=== PATIENT | male | born 1950 | race Caucasian/White ===

== ENCOUNTER 2016-11-25 17:19 | Emergency (ER) | payer MEDICARE, OTHER ==
[~2016-11-25] VITALS: Ht 170.2 cm; Wt 87.0 kg
[~2016-11-25 17:19] MED LIST: ATOR20TA86 PO; BENZ0.5T6 PO; BETH25 PO; DIVA500T35 PO; DONE10TA PO; DSS100 PO; LISI-661 PO; QUET100T PO; TAMS0.4C32 PO
[2016-11-25 18:45] LABS: BASOPHILS % (AUTO) 0.3 % (0.0-2.0); EOSINOPHILS % (AUTO) 0.6 % (1.0-6.0); HEMATOCRIT 37.8 % (41-53); HEMOGLOBIN 12.5 g/dL (13.5-17.5); LYMPHOCYTES % (AUTO) 12.8 % (22.0-44.0); MEAN CORPUSCULAR HEMOGLOBIN 30.9 pg (26.0-34.0); MEAN CORPUSCULAR VOLUME 94 fL (80-100); MONOCYTES # (AUTO) 0.7 K/uL (0.1-1.0); MONOCYTES % (AUTO) 8.7 % (2.0-9.0); NEUTROPHILS % (AUTO) 77.6 % (40.0-70.0); PLATELET COUNT (AUTO) 207 K/uL (150-450); RED BLOOD CELL COUNT(AUTO) 4.04 MIL/uL (4.50-5.90); RED CELL DISTRIBUTION WIDTH 14.5 % (11.5-14.5); WHITE BLOOD COUNT (AUTO) 7.7 K/uL (4.5-11.0)
[2016-11-25 19:01] LABS: ANION GAP 8 mmol/L (8-16); CALCIUM, TOTAL 8.6 mg/dL (8.8-10.5); CARBON DIOXIDE 28 mmol/L (22-29); CHLORIDE 90 mmol/L (98-107); CREATININE 2.13 mg/dL (0.60-1.30); GLOMERULAR FILTR. RATE CALC 31 mL/min (>60); POTASSIUM 3.7 mmol/L (3.5-5.1); SODIUM SERUM 126 mmol/L (136-145); UREA NITROGEN, BLOOD 29 mg/dL (7-18)
[2016-11-25 19:06] LABS: ALANINE AMINOTRANSFERASE 14 U/L (12-78); ALBUMIN 3.5 g/dL (3.4-5.0); ASPARTATE AMINOTRANSFERASE 25 U/L (15-37); BILIRUBIN,TOTAL 0.4 mg/dL (0.1-1.0); TOTAL PROTEIN, SERUM 6.5 g/dL (6.4-8.2)
[2016-11-25] MEDS ORDERED: SODIUM CHLORIDE 0.9% 1,000 ML IV ONE (20:45)
[2016-11-25 21:41] VITALS: BP 110/65
== END 2016-11-25 22:03 | disposition home or self-care (01) ==
LOC: EMS 17:25
DX: F20.9 Schizophrenia, unspecified (principal); I10 Essential (primary) hypertension
CPT/HCPCS: 36415; 80053; 80307; 85025; 96360; 99285; G0480; J7030

== ENCOUNTER 2018-11-11 15:55 | Emergency (ER) | payer MEDICARE, OTHER ==
[~2018-11-11] VITALS: Ht 167.6 cm; Wt 76.0 kg
[~2018-11-11 15:55] MED LIST changes: +ACYC200C PO; -ATOR20TA86 PO; +BACL10TA PO; -BENZ0.5T6 PO; -BETH25 PO; +CEPH500 PO; +CIPR-278 PO; +DIVA-78 PO; -DIVA500T35 PO; -DONE10TA PO; -DSS100 PO; -LISI-661 PO; +PANT40TA25 PO; -QUET100T PO; -TAMS0.4C32 PO
[2018-11-11] MEDS ORDERED: BETH25 PO (16:34)
[2018-11-11] MEDS ORDERED: MEMA5 PO (16:34)
[2018-11-11] MEDS ORDERED: TAMS0.4C32 PO (16:34)
[2018-11-11] MEDS ORDERED: LISI-661 PO (16:34)
[2018-11-11] MEDS ORDERED: TEMA15CA PO (16:34)
[2018-11-11] MEDS ORDERED: AMAN100C12 PO (16:34)
[2018-11-11] MEDS ORDERED: RISP.5 PO (16:34)
[2018-11-11] MEDS ORDERED: DIVA500T52 PO (16:34)
[2018-11-11] MEDS ORDERED: DIVA250T4 PO (16:34)
[2018-11-11] MEDS ORDERED: PANT40TA25 PO (16:34)
[2018-11-11] MEDS ORDERED: DSS100 PO (16:34)
[2018-11-11] MEDS ORDERED: DONE10TA8 PO (16:34)
[2018-11-11] MEDS ORDERED: TRAZ-219 PO (16:34)
[2018-11-11] MEDS ORDERED: RISP1 PO (16:34)
[2018-11-11 16:57] LABS: BASOPHILS % (AUTO) 0.4 % (0.0-2.0); EOSINOPHILS % (AUTO) 1.5 % (1.0-6.0); HEMATOCRIT 37.2 % (41-53); HEMOGLOBIN 12.5 g/dL (13.5-17.5); LYMPHOCYTES # (AUTO) 1.1 K/uL (1.0-4.8); LYMPHOCYTES % (AUTO) 21.3 % (22.0-44.0); MEAN CORPUSCULAR HEMOGLOBIN 30.1 pg (26.0-34.0); MEAN CORPUSCULAR HGB CONC 33.6 G/dL (31.0-37.0); MEAN CORPUSCULAR VOLUME 90 fL (80-100); MONOCYTES # (AUTO) 0.6 K/uL (0.1-1.0); MONOCYTES % (AUTO) 11.1 % (2.0-9.0); NEUTROPHILS # (AUTO) 3.4 K/uL (1.8-7.7); NEUTROPHILS % (AUTO) 65.7 % (40.0-70.0); PLATELET COUNT (AUTO) 139 K/uL (150-450); RED BLOOD CELL COUNT(AUTO) 4.15 MIL/uL (4.50-5.90); RED CELL DISTRIBUTION WIDTH 14.6 % (11.5-14.5)
[2018-11-11 17:46] LABS: ALANINE AMINOTRANSFERASE 18 U/L (12-78); ALBUMIN 3.2 g/dL (3.4-5.0); ALKALINE PHOSPHATASE 83 U/L (46-116); ANION GAP 7 mmol/L (8-16); ASPARTATE AMINOTRANSFERASE 18 U/L (15-37); BILIRUBIN,TOTAL 0.2 mg/dL (0.1-1.0); CALCIUM, TOTAL 8.7 mg/dL (8.8-10.5); CARBON DIOXIDE 28 mmol/L (22-29); CHLORIDE 96 mmol/L (98-107); GLOMERULAR FILTR. RATE CALC 28 mL/min (>60); GLUCOSE,RANDOM 98 mg/dL (70-110); POTASSIUM 5.1 mmol/L (3.5-5.1); SODIUM SERUM 131 mmol/L (136-145); TOTAL PROTEIN, SERUM 6.2 g/dL (6.4-8.2); UREA NITROGEN, BLOOD 39 mg/dL (7-18); VALPROIC ACID 53 mcg/mL (50-100)
[2018-11-11 20:20] LABS: APPEARANCE,URINE CLEAR (CLEAR); BILIRUBIN,URINE NEGATIVE (NEGATIVE); GLUCOSE, URINE (UA) NEGATIVE (NEGATIVE); KETONES,URINE NEGATIVE (NEGATIVE); LEUKOCYTE ESTERASE ,URINE NEGATIVE (NEGATIVE); NITRATE,URINE NEGATIVE (NEGATIVE); OCCULT BLOOD,URINE NEGATIVE (NEGATIVE); PH,URINE 6.5 (5.0-8.0); PROTEIN,URINE NEGATIVE (NEGATIVE); UROBILINOGEN,URINE 0.2 mg/dL (<=1.0)
[2018-11-11 20:26] LABS: AMPHET/METH SCREEN,URINE NEGATIVE (NEGATIVE); BARBITURATE SCREEN, URINE NEGATIVE (NEGATIVE); BENZODIAZEPINES SCREEN,URINE NEGATIVE (NEGATIVE); CANNABINOID SCREEN,URINE NEGATIVE (NEGATIVE); COCAINE SCREEN,URINE NEGATIVE (NEGATIVE); METHADONE SCREEN, URINE NEGATIVE (NEGATIVE); OPIATE SCREEN,URINE NEGATIVE (NEGATIVE)
[2018-11-11 20:30] LABS: PHENCYCLIDINE SCREEN,URINE NEGATIVE (NEGATIVE)
[2018-11-11 21:09] LABS: BACTERIA,URINE None Seen /HPF (None Seen); RBC,URINE None Seen /HPF (0-2); WBC,URINE None Seen /HPF (0-5)
[2018-11-11 21:10] LABS: SQUAMOUS EPITHELIAL CELL,UR None Seen /LPF (None Seen)
[2018-11-11 21:29] VITALS: BP 132/80
== END 2018-11-11 21:30 | disposition home or self-care (01) ==
LOC: EMS 15:56
DX: G40.909 Epilepsy, unspecified, not intractable, without status epilepticus (principal); M79.631 Pain in right forearm; F31.9 Bipolar disorder, unspecified; I10 Essential (primary) hypertension; F20.9 Schizophrenia, unspecified; Z79.899 Other long term (current) drug therapy
CPT/HCPCS: 36415; 80053; 80164; 80307; 81001; 85025; 99291; G0480

== ENCOUNTER 2018-11-14 11:26 | Emergency (ER) | payer MEDICARE, OTHER ==
[~2018-11-14] VITALS: Ht 171.4 cm; Wt 68.1 kg
[~2018-11-14 11:26] MED LIST changes: -ACYC200C PO; +AMAN100C12 PO; -BACL10TA PO; +BETH25 PO; -CEPH500 PO; -CIPR-278 PO; -DIVA-78 PO; +DIVA250T4 PO; +DIVA500T52 PO; +DONE10TA8 PO; +DSS100 PO; +LISI-661 PO; +MEMA5 PO; +RISP.5 PO; +RISP1 PO; +TAMS0.4C32 PO; +TEMA15CA PO; +TRAZ-219 PO
[2018-11-14] MEDS ORDERED: DIVA-78 PO (12:07)
[2018-11-14] MEDS ORDERED: VALPROATE SODIUM 500 MG in DEXTROSE 5%-WATER 50 ML IV ONE (12:15)
[2018-11-14 15:49] LABS: BASOPHILS % (AUTO) 0.5 % (0.0-2.0); EOSINOPHILS % (AUTO) 0.7 % (1.0-6.0); HEMATOCRIT 36.5 % (41-53); HEMOGLOBIN 12.4 g/dL (13.5-17.5); LYMPHOCYTES # (AUTO) 1.2 K/uL (1.0-4.8); LYMPHOCYTES % (AUTO) 22.2 % (22.0-44.0); MEAN CORPUSCULAR HEMOGLOBIN 30.1 pg (26.0-34.0); MEAN CORPUSCULAR HGB CONC 34.1 G/dL (31.0-37.0); MEAN CORPUSCULAR VOLUME 88 fL (80-100); MONOCYTES # (AUTO) 0.5 K/uL (0.1-1.0); MONOCYTES % (AUTO) 9.9 % (2.0-9.0); NEUTROPHILS # (AUTO) 3.6 K/uL (1.8-7.7); NEUTROPHILS % (AUTO) 66.7 % (40.0-70.0); PLATELET COUNT (AUTO) 138 K/uL (150-450); RED BLOOD CELL COUNT(AUTO) 4.14 MIL/uL (4.50-5.90); RED CELL DISTRIBUTION WIDTH 14.8 % (11.5-14.5)
[2018-11-14 16:03] LABS: ALANINE AMINOTRANSFERASE 20 U/L (12-78); ALBUMIN 3.1 g/dL (3.4-5.0); ALKALINE PHOSPHATASE 86 U/L (46-116); ANION GAP 4 mmol/L (8-16); ASPARTATE AMINOTRANSFERASE 17 U/L (15-37); BILIRUBIN,TOTAL 0.4 mg/dL (0.1-1.0); CALCIUM, TOTAL 8.7 mg/dL (8.8-10.5); CARBON DIOXIDE 27 mmol/L (22-29); CHLORIDE 94 mmol/L (98-107); CREATININE 2.52 mg/dL (0.60-1.30); GLOMERULAR FILTR. RATE CALC 25 mL/min (>60); GLUCOSE,RANDOM 92 mg/dL (70-110); POTASSIUM 4.3 mmol/L (3.5-5.1); SODIUM SERUM 125 mmol/L (136-145); UREA NITROGEN, BLOOD 33 mg/dL (7-18); VALPROIC ACID 88 mcg/mL (50-100)
[2018-11-14 16:12] LABS: AMPHET/METH SCREEN,URINE NEGATIVE (NEGATIVE); BARBITURATE SCREEN, URINE NEGATIVE (NEGATIVE); BENZODIAZEPINES SCREEN,URINE NEGATIVE (NEGATIVE); CANNABINOID SCREEN,URINE NEGATIVE (NEGATIVE); COCAINE SCREEN,URINE NEGATIVE (NEGATIVE); METHADONE SCREEN, URINE NEGATIVE (NEGATIVE); OPIATE SCREEN,URINE NEGATIVE (NEGATIVE); PHENCYCLIDINE SCREEN,URINE NEGATIVE (NEGATIVE)
[2018-11-14 19:36] VITALS: BP 122/78
== END 2018-11-14 20:20 | disposition home or self-care (01) ==
LOC: EMS 11:27
DX: G40.909 Epilepsy, unspecified, not intractable, without status epilepticus (principal); I10 Essential (primary) hypertension; F20.9 Schizophrenia, unspecified; F31.9 Bipolar disorder, unspecified; Z79.899 Other long term (current) drug therapy
CPT/HCPCS: 36415; 70450; 80053; 80164; 80307; 85025; 96365; 99284; G0480; J3490; J7060

== ENCOUNTER 2019-05-06 15:28 | Inpatient (IN) | payer MEDICARE, OTHER ==
[~2019-05-06] VITALS: Ht 177.8 cm; Wt 81.6 kg
[~2019-05-06 15:28] MED LIST changes: +AMAN-6 PO; -AMAN100C12 PO; +DIVA-78 PO; -DIVA250T4 PO; -TRAZ-219 PO; +TRAZ-252 PO
[2019-05-06] MEDS ORDERED: SODIUM CHLORIDE 0.9% 1,000 ML IV ONE ×3 (15:52→20:45)
[2019-05-06] MEDS ORDERED: ATOR10TA84 PO (15:53)
[2019-05-06] MEDS ORDERED: ACETAMINOPHEN 500 MG TABLET PO ONE (16:00)
[2019-05-06 16:24] LABS: BASOPHILS % (AUTO) 0.2 % (0.0-2.0); EOSINOPHILS % (AUTO) 0.3 % (1.0-6.0); HEMOGLOBIN 11.5 g/dL (13.5-17.5); LYMPHOCYTES # (AUTO) 0.5 K/uL (1.0-4.8); LYMPHOCYTES % (AUTO) 3.4 % (22.0-44.0); MEAN CORPUSCULAR HEMOGLOBIN 30.5 pg (26.0-34.0); MEAN CORPUSCULAR HGB CONC 32.9 G/dL (31.0-37.0); MEAN CORPUSCULAR VOLUME 93 fL (80-100); MONOCYTES # (AUTO) 0.9 K/uL (0.1-1.0); MONOCYTES % (AUTO) 6.4 % (2.0-9.0); NEUTROPHILS # (AUTO) 12.3 K/uL (1.8-7.7); PLATELET COUNT (AUTO) 162 K/uL (150-450); RED BLOOD CELL COUNT(AUTO) 3.77 MIL/uL (4.50-5.90); RED CELL DISTRIBUTION WIDTH 14.4 % (11.5-14.5)
[2019-05-06 16:25] LABS: NEUTROPHILS % (AUTO) 89.7 % (40.0-70.0)
[2019-05-06 16:34] LABS: CALCIUM, TOTAL 8.6 mg/dL (8.8-10.5); CREATININE 3.19 mg/dL (0.60-1.30); POTASSIUM 4.4 mmol/L (3.5-5.1)
[2019-05-06 16:38] LABS: PROTHROMBIN TIME 10.9 SEC (9.4-11.6)
[2019-05-06 16:49] LABS: LACTIC ACID 1.1 mmol/L (0.4-2.0)
[2019-05-06 17:00] LABS: ALBUMIN 2.6 g/dL (3.4-5.0); BILIRUBIN,TOTAL 0.7 mg/dL (0.1-1.0); TOTAL PROTEIN, SERUM 6.9 g/dL (6.4-8.2)
[2019-05-06 17:41] LABS: INFLUENZA TYPE A NEGATIVE FOR TYPE A (NEGATIVE); INFLUENZA TYPE B NEGATIVE FOR TYPE B (NEGATIVE)
[2019-05-06] MEDS ORDERED: CefTRIAXone 1 GM/DEXTROSE 50 ML IV SCH (18:00)
[2019-05-06 18:05] LABS: APPEARANCE,URINE TURBID (CLEAR); BILIRUBIN,URINE NEGATIVE (NEGATIVE); GLUCOSE, URINE (UA) NEGATIVE (NEGATIVE); KETONES,URINE NEGATIVE (NEGATIVE); LEUKOCYTE ESTERASE ,URINE LARGE (NEGATIVE); NITRATE,URINE NEGATIVE (NEGATIVE); OCCULT BLOOD,URINE LARGE (NEGATIVE); PROTEIN,URINE SEE CONFIRM (NEGATIVE)
[2019-05-06] MEDS ORDERED: ONDANSETRON HCL 4 MG/2 ML VIAL IVP PRN ×2 (18:15→20:45)
[2019-05-06] MEDS ORDERED: ACETAMINOPHEN 325 MG TABLET PO PRN ×2 (18:15→20:45)
[2019-05-06] MEDS ORDERED: CefTRIAXone 1 GM/DEXTROSE 50 ML IV ONE (18:15)
[2019-05-06 18:18] LABS: SULFOSALICYLIC ACID,URINE 3+ (Negative)
[2019-05-06 18:21] LABS: BACTERIA,URINE Moderate /HPF (None Seen); WBC,URINE >100 /HPF (0-5)
[2019-05-06 18:22] LABS: RENAL EPITHELIAL CELLS,URINE Few /LPF (None Seen); SQUAMOUS EPITHELIAL CELL,UR Few /LPF (None Seen)
[2019-05-06] MEDS ORDERED: ZOLPIDEM TARTRATE 5 MG TABLET PO PRN (20:45)
[2019-05-06] MEDS ORDERED: BISACODYL 10 MG RECTAL RECTAL SUPPOSITORY PR PRN (20:45)
[2019-05-06] MEDS ORDERED: BETHANECHOL CHLORIDE 25 MG TABLET PO PRN (20:45)
[2019-05-06] MEDS ORDERED: HYDROCODONE/ACETAMINOPHEN 5-325 MG TABLET PO PRN (20:45)
[2019-05-06] MEDS ORDERED: MAGNESIUM HYDROXIDE SUSPENSION 30 ML UDCUP PO PRN (20:45)
[2019-05-06] MEDS ORDERED: MORPHINE SULFATE 2 MG/ML SYRINGE IVP PRN (20:45)
[2019-05-06] MEDS: MEMANTINE HCL 5 MG TABLET PO SCH (22:09)
[2019-05-06] MEDS: TAMSULOSIN HCL 0.4 MG CAPSULE PO SCH (22:10)
[2019-05-06] MEDS: DONEPEZIL HCL 10 MG TABLET PO SCH (22:10)
[2019-05-06] MEDS: RisperiDONE 1 MG TABLET PO SCH (22:10)
[2019-05-06] MEDS: DOCUSATE SODIUM 100 MG CAPSULE PO SCH (22:10)
[2019-05-07] MEDS: HEPARIN SODIUM,PORCINE 5,000 UNITS/ML VIAL SQ SCH ×3 (01:28→16:38)
[2019-05-07 08:28] VITALS: BP 112/58
[2019-05-07] MEDS: TAMSULOSIN HCL 0.4 MG CAPSULE PO SCH ×2 (09:58→19:59)
[2019-05-07] MEDS: ATORVASTATIN CALCIUM 10 MG TABLET PO SCH (09:59)
[2019-05-07] MEDS: LISINOPRIL 10 MG TABLET PO SCH (09:59)
[2019-05-07] MEDS: DOCUSATE SODIUM 100 MG CAPSULE PO SCH ×2 (09:59→19:59)
[2019-05-07] MEDS: RisperiDONE 0.5 MG TABLET PO SCH ×2 (09:59→16:38)
[2019-05-07] MEDS: PANTOPRAZOLE SODIUM 40 MG DR TABLET PO SCH (09:59)
[2019-05-07 11:52] VITALS: BP 101/54
[2019-05-07] MEDS: MEMANTINE HCL 5 MG TABLET PO SCH ×2 (11:54→19:59)
[2019-05-07 15:54] VITALS: BP 103/56
[2019-05-07] MEDS ORDERED: VANCOMYCIN HCL 1 GM/D5% WATER 200 ML IV PRN (17:00)
[2019-05-07] MEDS ORDERED: SODIUM CHLORIDE 0.9% 500 ML IV ONE (17:34)
[2019-05-07] MEDS ORDERED: VANCOMYCIN HCL 1 GM/D5% WATER 200 ML IV ONE (18:00)
[2019-05-07] MEDS: RisperiDONE 1 MG TABLET PO SCH (19:59)
[2019-05-07] MEDS: CefTRIAXone 1 GM/DEXTROSE 50 ML IV SCH (19:59)
[2019-05-07 20:15] VITALS: BP 100/51
[2019-05-07] MEDS: DONEPEZIL HCL 10 MG TABLET PO SCH (21:59)
[2019-05-07 23:34] VITALS: BP 106/50
[2019-05-08] MEDS: HEPARIN SODIUM,PORCINE 5,000 UNITS/ML VIAL SQ SCH ×4 (01:01→23:44)
[2019-05-08 05:14] VITALS: BP 117/61
[2019-05-08 06:03] LABS: BASOPHILS % (AUTO) 0.3 % (0.0-2.0); EOSINOPHILS % (AUTO) 0.8 % (1.0-6.0); HEMATOCRIT 29.9 % (41-53); HEMOGLOBIN 10.1 g/dL (13.5-17.5); LYMPHOCYTES # (AUTO) 0.8 K/uL (1.0-4.8); LYMPHOCYTES % (AUTO) 15.5 % (22.0-44.0); MEAN CORPUSCULAR HEMOGLOBIN 31.4 pg (26.0-34.0); MEAN CORPUSCULAR HGB CONC 33.7 G/dL (31.0-37.0); MEAN CORPUSCULAR VOLUME 93 fL (80-100); MONOCYTES # (AUTO) 0.4 K/uL (0.1-1.0); MONOCYTES % (AUTO) 8.9 % (2.0-9.0); NEUTROPHILS # (AUTO) 3.7 K/uL (1.8-7.7); NEUTROPHILS % (AUTO) 74.5 % (40.0-70.0); PLATELET COUNT (AUTO) 145 K/uL (150-450); RED BLOOD CELL COUNT(AUTO) 3.21 MIL/uL (4.50-5.90); RED CELL DISTRIBUTION WIDTH 14.4 % (11.5-14.5)
[2019-05-08 06:41] LABS: CALCIUM, TOTAL 8.4 mg/dL (8.8-10.5); CREATININE 2.37 mg/dL (0.60-1.30); POTASSIUM 3.8 mmol/L (3.5-5.1); VANCOMYCIN,RANDOM 11.8 mcg/mL (25.0-50.0)
[2019-05-08 07:58] VITALS: BP 102/50
[2019-05-08] MEDS ORDERED: VANCOMYCIN HCL 1 GM/D5% WATER 200 ML IV ONE (08:00)
[2019-05-08] MEDS: DOCUSATE SODIUM 100 MG CAPSULE PO SCH ×2 (08:31→20:38)
[2019-05-08] MEDS: PANTOPRAZOLE SODIUM 40 MG DR TABLET PO SCH (08:31)
[2019-05-08] MEDS: RisperiDONE 0.5 MG TABLET PO SCH ×2 (08:31→18:39)
[2019-05-08] MEDS: MEMANTINE HCL 5 MG TABLET PO SCH ×2 (08:31→20:38)
[2019-05-08] MEDS: TAMSULOSIN HCL 0.4 MG CAPSULE PO SCH ×2 (08:31→20:38)
[2019-05-08] MEDS: LISINOPRIL 10 MG TABLET PO SCH ×2 (08:32→09:00)
[2019-05-08] MEDS: ATORVASTATIN CALCIUM 10 MG TABLET PO SCH (08:32)
[2019-05-08] MEDS ORDERED: SODIUM CHLORIDE 0.9% 1,000 ML IV ONE (11:15)
[2019-05-08 11:56] VITALS: BP 105/61
[2019-05-08 15:38] VITALS: BP 117/58
[2019-05-08 20:13] VITALS: BP 125/66
[2019-05-08] MEDS: DONEPEZIL HCL 10 MG TABLET PO SCH (20:38)
[2019-05-08] MEDS: RisperiDONE 1 MG TABLET PO SCH (20:38)
[2019-05-08] MEDS: CefTRIAXone 1 GM/DEXTROSE 50 ML IV SCH (20:39)
[2019-05-09 00:02] VITALS: BP 137/62
[2019-05-09 04:16] VITALS: BP 133/65
[2019-05-09 06:22] LABS: CALCIUM, TOTAL 8.9 mg/dL (8.8-10.5); CREATININE 2.05 mg/dL (0.60-1.30); POTASSIUM 4.3 mmol/L (3.5-5.1); VANCOMYCIN,RANDOM 9.5 mcg/mL (25.0-50.0)
[2019-05-09 06:32] LABS: BASOPHILS % (AUTO) 0.4 % (0.0-2.0); EOSINOPHILS % (AUTO) 2.1 % (1.0-6.0); HEMATOCRIT 32.8 % (41-53); HEMOGLOBIN 10.8 g/dL (13.5-17.5); LYMPHOCYTES # (AUTO) 0.8 K/uL (1.0-4.8); MEAN CORPUSCULAR HEMOGLOBIN 30.7 pg (26.0-34.0); MEAN CORPUSCULAR HGB CONC 33.1 G/dL (31.0-37.0); MEAN CORPUSCULAR VOLUME 93 fL (80-100); MONOCYTES # (AUTO) 0.4 K/uL (0.1-1.0); MONOCYTES % (AUTO) 8.4 % (2.0-9.0); NEUTROPHILS # (AUTO) 3.2 K/uL (1.8-7.7); NEUTROPHILS % (AUTO) 71.1 % (40.0-70.0); PLATELET COUNT (AUTO) 171 K/uL (150-450); RED BLOOD CELL COUNT(AUTO) 3.53 MIL/uL (4.50-5.90); RED CELL DISTRIBUTION WIDTH 14.8 % (11.5-14.5)
[2019-05-09 07:59] VITALS: BP 131/86
[2019-05-09] MEDS ORDERED: VANCOMYCIN HCL 1.25 GM in DEXTROSE 5%-WATER 250 ML IV ONE (08:00)
[2019-05-09] MEDS: DOCUSATE SODIUM 100 MG CAPSULE PO SCH ×2 (08:01→20:07)
[2019-05-09] MEDS: ATORVASTATIN CALCIUM 10 MG TABLET PO SCH (08:01)
[2019-05-09] MEDS: TAMSULOSIN HCL 0.4 MG CAPSULE PO SCH ×2 (08:01→20:07)
[2019-05-09] MEDS: HEPARIN SODIUM,PORCINE 5,000 UNITS/ML VIAL SQ SCH ×3 (08:01→23:32)
[2019-05-09] MEDS: MEMANTINE HCL 5 MG TABLET PO SCH ×2 (08:02→20:06)
[2019-05-09] MEDS: RisperiDONE 0.5 MG TABLET PO SCH ×2 (08:02→16:59)
[2019-05-09] MEDS: PANTOPRAZOLE SODIUM 40 MG DR TABLET PO SCH (08:02)
[2019-05-09] MEDS: LISINOPRIL 10 MG TABLET PO SCH (08:02)
[2019-05-09] MEDS ORDERED: SODIUM CHLORIDE 0.9% 500 ML IV ONE (11:15)
[2019-05-09 12:30] VITALS: BP 127/97
[2019-05-09 17:35] VITALS: BP 149/89
[2019-05-09 19:25] VITALS: BP 106/56
[2019-05-09] MEDS: CefTRIAXone 1 GM/DEXTROSE 50 ML IV SCH (20:06)
[2019-05-09] MEDS: RisperiDONE 1 MG TABLET PO SCH (20:07)
[2019-05-09] MEDS: DONEPEZIL HCL 10 MG TABLET PO SCH (20:07)
[2019-05-10 00:29] VITALS: BP 125/73
[2019-05-10 04:51] VITALS: BP 118/65
[2019-05-10 06:12] LABS: BASOPHILS % (AUTO) 0.5 % (0.0-2.0); EOSINOPHILS % (AUTO) 4.1 % (1.0-6.0); HEMATOCRIT 33.9 % (41-53); HEMOGLOBIN 11.4 g/dL (13.5-17.5); LYMPHOCYTES # (AUTO) 0.9 K/uL (1.0-4.8); LYMPHOCYTES % (AUTO) 19.3 % (22.0-44.0); MEAN CORPUSCULAR HEMOGLOBIN 31.3 pg (26.0-34.0); MEAN CORPUSCULAR HGB CONC 33.6 G/dL (31.0-37.0); MEAN CORPUSCULAR VOLUME 93 fL (80-100); MONOCYTES # (AUTO) 0.3 K/uL (0.1-1.0); MONOCYTES % (AUTO) 6.7 % (2.0-9.0); NEUTROPHILS # (AUTO) 3.3 K/uL (1.8-7.7); NEUTROPHILS % (AUTO) 69.4 % (40.0-70.0); PLATELET COUNT (AUTO) 187 K/uL (150-450); RED BLOOD CELL COUNT(AUTO) 3.65 MIL/uL (4.50-5.90); RED CELL DISTRIBUTION WIDTH 14.6 % (11.5-14.5)
[2019-05-10 06:21] LABS: CALCIUM, TOTAL 9.3 mg/dL (8.8-10.5); CREATININE 1.9 mg/dL (0.60-1.30); POTASSIUM 4.2 mmol/L (3.5-5.1); VANCOMYCIN,RANDOM 16.6 mcg/mL (25.0-50.0)
[2019-05-10] MEDS ORDERED: VANCOMYCIN HCL 1 GM/D5% WATER 200 ML IV ONE (08:00)
[2019-05-10 08:29] VITALS: BP 100/58
[2019-05-10] MEDS: HEPARIN SODIUM,PORCINE 5,000 UNITS/ML VIAL SQ SCH ×3 (08:29→23:19)
[2019-05-10] MEDS: RisperiDONE 0.5 MG TABLET PO SCH ×2 (08:29→16:22)
[2019-05-10] MEDS: LISINOPRIL 10 MG TABLET PO SCH ×2 (08:29→16:22)
[2019-05-10] MEDS: TAMSULOSIN HCL 0.4 MG CAPSULE PO SCH ×2 (08:29→20:22)
[2019-05-10] MEDS: MEMANTINE HCL 5 MG TABLET PO SCH ×2 (08:29→20:22)
[2019-05-10] MEDS: ATORVASTATIN CALCIUM 10 MG TABLET PO SCH (08:29)
[2019-05-10] MEDS: DOCUSATE SODIUM 100 MG CAPSULE PO SCH ×2 (08:29→20:22)
[2019-05-10] MEDS: PANTOPRAZOLE SODIUM 40 MG DR TABLET PO SCH (08:29)
[2019-05-10] MEDS ORDERED: SODIUM CHLORIDE 0.9% 500 ML IV ONE (10:45)
[2019-05-10 11:20] VITALS: BP 113/63
[2019-05-10 15:43] VITALS: BP 133/73
[2019-05-10 19:30] VITALS: BP 104/67
[2019-05-10] MEDS: RisperiDONE 1 MG TABLET PO SCH (20:22)
[2019-05-10] MEDS: DONEPEZIL HCL 10 MG TABLET PO SCH (20:22)
[2019-05-10] MEDS: CefTRIAXone 1 GM/DEXTROSE 50 ML IV SCH (20:23)
[2019-05-11 04:45] VITALS: BP 115/66
[2019-05-11 06:48] LABS: CREATININE 2.09 mg/dL (0.60-1.30); POTASSIUM 4.2 mmol/L (3.5-5.1); VANCOMYCIN,RANDOM 17.4 mcg/mL (25.0-50.0)
[2019-05-11 07:29] VITALS: BP 121/70
[2019-05-11] MEDS ORDERED: VANCOMYCIN HCL 1 GM/D5% WATER 200 ML IV ONE (08:00)
[2019-05-11] MEDS: HEPARIN SODIUM,PORCINE 5,000 UNITS/ML VIAL SQ SCH ×3 (08:28→23:17)
[2019-05-11] MEDS: RisperiDONE 0.5 MG TABLET PO SCH ×2 (08:28→15:59)
[2019-05-11] MEDS: PANTOPRAZOLE SODIUM 40 MG DR TABLET PO SCH (08:28)
[2019-05-11] MEDS: LISINOPRIL 10 MG TABLET PO SCH (08:28)
[2019-05-11] MEDS: TAMSULOSIN HCL 0.4 MG CAPSULE PO SCH ×2 (08:28→20:30)
[2019-05-11] MEDS: DOCUSATE SODIUM 100 MG CAPSULE PO SCH ×2 (08:28→20:30)
[2019-05-11] MEDS: ATORVASTATIN CALCIUM 10 MG TABLET PO SCH (08:28)
[2019-05-11] MEDS: MEMANTINE HCL 5 MG TABLET PO SCH ×2 (08:35→20:30)
[2019-05-11] MEDS ORDERED: SODIUM CHLORIDE 0.9% 500 ML IV ONE ×2 (10:15)
[2019-05-11 11:13] VITALS: BP 153/90
[2019-05-11 15:31] VITALS: BP 106/66
[2019-05-11 17:50] VITALS: BP 120/75
[2019-05-11] MEDS: CefTRIAXone 1 GM/DEXTROSE 50 ML IV SCH (20:30)
[2019-05-11] MEDS: DONEPEZIL HCL 10 MG TABLET PO SCH (20:30)
[2019-05-11] MEDS: RisperiDONE 1 MG TABLET PO SCH (20:30)
[2019-05-11 23:29] VITALS: BP 90/53
[2019-05-12 05:20] VITALS: BP 103/57
[2019-05-12 06:09] LABS: CALCIUM, TOTAL 9.2 mg/dL (8.8-10.5); CREATININE 2.11 mg/dL (0.60-1.30); POTASSIUM 4.2 mmol/L (3.5-5.1); VANCOMYCIN,RANDOM 18.8 mcg/mL (25.0-50.0)
[2019-05-12] MEDS ORDERED: VANCOMYCIN HCL 1 GM/D5% WATER 200 ML IV SCH (08:00)
[2019-05-12 08:13] VITALS: BP 92/52
[2019-05-12] MEDS: ATORVASTATIN CALCIUM 10 MG TABLET PO SCH (09:13)
[2019-05-12] MEDS: HEPARIN SODIUM,PORCINE 5,000 UNITS/ML VIAL SQ SCH (09:13)
[2019-05-12] MEDS: TAMSULOSIN HCL 0.4 MG CAPSULE PO SCH (09:13)
[2019-05-12] MEDS: DOCUSATE SODIUM 100 MG CAPSULE PO SCH (09:13)
[2019-05-12] MEDS: PANTOPRAZOLE SODIUM 40 MG DR TABLET PO SCH (09:13)
[2019-05-12] MEDS: RisperiDONE 0.5 MG TABLET PO SCH (09:14)
[2019-05-12] MEDS ORDERED: CIP250 PO (10:28)
[2019-05-12] MEDS: MEMANTINE HCL 5 MG TABLET PO SCH (10:53)
[2019-05-12 11:54] VITALS: BP 103/70
[2019-05-12 15:20] VITALS: BP 99/63
== END 2019-05-12 15:40 | disposition home or self-care (01) | DRG 872 ==
LOC: EMS 15:29 → 6N 05-07 05:34
PROVIDERS: ADMIT Internal Medicine; ATTEND Internal Medicine
DX: A41.9 Sepsis, unspecified organism (principal); N39.0 Urinary tract infection, site not specified; N17.9 Acute kidney failure, unspecified; E87.1 Hypo-osmolality and hyponatremia; N40.0 Benign prostatic hyperplasia without lower urinary tract symptoms; F20.9 Schizophrenia, unspecified; F02.80 Dementia in other diseases classified elsewhere, unspecified severity, without behavioral disturbance, psychotic disturbance, mood disturbance, and anxiety; B95.5 Unspecified streptococcus as the cause of diseases classified elsewhere; B95.7 Other staphylococcus as the cause of diseases classified elsewhere; B96.1 Klebsiella pneumoniae [K. pneumoniae] as the cause of diseases classified elsewhere; B96.89 Other specified bacterial agents as the cause of diseases classified elsewhere; E78.5 Hyperlipidemia, unspecified; G20 Parkinson's disease; I12.9 Hypertensive chronic kidney disease with stage 1 through stage 4 chronic kidney disease, or unspecified chronic kidney disease; N18.9 Chronic kidney disease, unspecified; K21.9 Gastro-esophageal reflux disease without esophagitis; Z79.899 Other long term (current) drug therapy
CPT/HCPCS: 51701; 83605; 87040; 87086; 87205; 87804; 93005; 93306; 96365; J0696; J1644; J3370; J7030; J7040; J7060